=== PATIENT | male | born 1940 | race Caucasian/White ===

== ENCOUNTER 2017-01-23 11:06 | Emergency (ER) | payer MEDICARE ==
[~2017-01-23] VITALS: Ht 172.7 cm; Wt 68.0 kg
--- NOTE | 2017-01-23 11:15 | NUR ---
PT CAME HERE FOR WOUND/SKIN TEAR SUSTAINED LAST NIGHT DURING A FALL AT HIS PATIO. NOTED SKIN TEAR ON R FA. NAD NOTED. MD AT BS FOR EVAL. VSS. SAFETY AND COMFORT MEASURES PROVIDED. WILL MONITOR.
[2017-01-23] MEDS ORDERED: TDAP [DIPH/PERTUSSIS/TET] 0.5 ML VIAL IM ONE ×2 (11:19→11:30)
--- NOTE | 2017-01-23 11:20 | NUR ---
MAINTENANCE PLUMBER AT FOR BLOOD DRAW.
--- NOTE | 2017-01-23 11:32 | NUR ---
ROSALIA HANNA AT BS.
[2017-01-23 11:33] LABS: BASOPHILS # (AUTO) 0.1 /CMM (0.0-0.2); BASOPHILS % (AUTO) 0.7 % (0.0-2.0); EOSINOPHILS # (AUTO) 0.1 /CMM (0.0-0.7); EOSINOPHILS % (AUTO) 1.5 % (0.0-6.0); HEMATOCRIT 35 % (39-51); HEMOGLOBIN 11.9 g/dL (13.5-17.5); LYMPHOCYTES # (AUTO) 1.1 /CMM (0.8-4.8); LYMPHOCYTES % (AUTO) 14.1 % (20.0-44.0); MEAN CORPUSCULAR HEMOGLOBIN 33 PG (26.0-33.0); MEAN CORPUSCULAR HGB CONC 34 g/dl (31.0-36.0); MEAN CORPUSCULAR VOLUME 96 fL (80-96); MONOCYTES # (AUTO) 0.6 /CMM (0.1-1.30); MONOCYTES % (AUTO) 7.3 % (2.0-12.0); NEUTROPHILS # (AUTO) 5.9 /CMM (1.8-8.9); NEUTROPHILS % (AUTO) 76.4 % (43.0-81.0); PLATELET COUNT (AUTO) 227 /CMM (150-450); RDW COEFFICIENT OF VARIATION 12.8 (11.5-15.0); RED BLOOD CELL COUNT(AUTO) 3.59 MIL/uL (4.5-6.0); WHITE BLOOD COUNT (AUTO) 7.8 K/uL (4.3-11.0)
[2017-01-23 11:42] LABS: CALCIUM, SERUM 8.7 mg/dL (8.5-10.1); CARBON DIOXIDE 26 mmol/L (21-32); CHLORIDE 101 mmol/L (98-107); CREATININE 1.2 mg/dL (0.6-1.3); GLUCOSE 90 mg/dL (74-106); POTASSIUM 4.5 mmol/L (3.5-5.1); SODIUM SERUM 133 mmol/L (136-145); UREA NITROGEN, BLOOD 17 mg/dL (7-18)
[2017-01-23 11:50] LABS: TROPONIN I < 0.017 ng/mL (0.00-0.056)
--- NOTE | 2017-01-23 12:14 | NUR ---
DPatient discharged to home in stable condition. Written and verbal after care instructions given. Patient verbalizes understanding of instruction.
[2017-01-23 12:15] VITALS: BP 155/64
== END 2017-01-23 12:15 | disposition home or self-care (01) ==
LOC: ER 11:07
DX: S60.811A Abrasion of right wrist, initial encounter (principal); I10 Essential (primary) hypertension; F10.20 Alcohol dependence, uncomplicated; Z23 Encounter for immunization; W19.XXXA Unspecified fall, initial encounter; Y93.89 Activity, other specified; Y92.89 Other specified places as the place of occurrence of the external cause; Y99.8 Other external cause status
CPT/HCPCS: 36415; 71010; 80048; 84484; 85025; 90471; 90715; 93005; 99285; A4606; A6402; Z7610

== ENCOUNTER 2019-06-22 19:57 | Emergency (ER) | payer OTHER ==
[~2019-06-22] VITALS: Ht 172.7 cm; Wt 63.5 kg
--- NOTE | 2019-06-22 20:10 | NUR ---
BIB EMS C/O ALTERED, HEAVY ETOH SMELL. NOTED L NECK & L ELBOW SKIN TEAR. PATIENT ALTERED, ATTACHED TO THE IN HOME CAREGIVER. CHANGED INTO GOWN. NEEDS ATTENDED.
[2019-06-22 20:27] LABS: BASOPHILS # (AUTO) 0.1 /CMM (0.0-0.2); BASOPHILS % (AUTO) 1.4 % (0.0-2.0); EOSINOPHILS % (AUTO) 3.5 % (0.0-6.0); HEMATOCRIT 33 % (39-51); HEMOGLOBIN 11.1 g/dL (13.5-17.5); LYMPHOCYTES # (AUTO) 1.7 /CMM (0.8-4.8); LYMPHOCYTES % (AUTO) 28.6 % (20.0-44.0); MEAN CORPUSCULAR HGB CONC 34 g/dl (31.0-36.0); MEAN CORPUSCULAR VOLUME 100 fL (80-96); MONOCYTES # (AUTO) 0.5 /CMM (0.1-1.30); MONOCYTES % (AUTO) 8.9 % (2.0-12.0); NEUTROPHILS # (AUTO) 3.5 /CMM (1.8-8.9); NEUTROPHILS % (AUTO) 57.6 % (43.0-81.0); PLATELET COUNT (AUTO) 240 /CMM (150-450); RED BLOOD CELL COUNT(AUTO) 3.33 MIL/uL (4.5-6.0); WHITE BLOOD COUNT (AUTO) 6.1 K/uL (4.3-11.0)
[2019-06-22 20:30] LABS: APPEARANCE,URINE Clear (CLEAR); BILIRUBIN,URINE Negative (NEGATIVE); BLOOD, URINE Negative Ery/uL (NEGATIVE); COLOR,URINE Yellow (YELLOW); KETONES,URINE Negative (NEGATIVE); LEUKOCYTE ESTERASE ,URINE Negative (NEGATIVE); NITRITE, URINE Negative (NEGATIVE); PH,URINE 5.5 (5.0-8.0); PROTEIN,URINE Trace mg/dl (NEGATIVE); UGLUCOSE Negative (NEGATIVE); UROBILINOGEN,URINE 0.2 EU/dL (0.2)
[2019-06-22] MEDS ORDERED: BACI/NEOM/POLY B OINT PKT 1 UDPKT PACKET TP ONE ×2 (20:30→22:00)
[2019-06-22] MEDS ORDERED: TDAP [DIPH/PERTUSSIS/TET] 0.5 ML VIAL IM ONE ×2 (20:30→20:36)
[2019-06-22] MEDS ORDERED: BLOOD SUGAR DIAGNOSTIC 1 EACH STRIP IN ONE (20:30)
--- NOTE | 2019-06-22 20:38 | NUR ---
PATIENT TAKEN TO CT.
[2019-06-22 20:41] LABS: ALANINE AMINOTRANSFERASE 39 U/L (12-78); ALBUMIN 3.3 g/dL (3.4-5.0); ALCOHOL, BLOOD 356 mg/dL (0-0); ALKALINE PHOSPHATASE 70 U/L (46-116); ASPARTATE AMINOTRANSFERASE 114 U/L (15-37); BILIRUBIN,DIRECT 0.1 mg/dL (0.0-0.2); BILIRUBIN,TOTAL 0.2 mg/dL (0.2-1.0); CALCIUM, SERUM 8.5 mg/dL (8.5-10.1); CARBON DIOXIDE 22 mmol/L (21-32); CHLORIDE 103 mmol/L (98-107); CREATININE 1.3 mg/dL (0.6-1.3); GLUCOSE 104 mg/dL (74-106); POTASSIUM 3.3 mmol/L (3.5-5.1); SALICYLATE 3.4 mg/dL (2.8-20.0); SODIUM SERUM 136 mmol/L (136-145); UREA NITROGEN, BLOOD 21 mg/dL (7-18)
[2019-06-22 20:44] LABS: ACETAMINOPHEN < 2 ug/ml (10-30)
[2019-06-22 21:20] LABS: CREATINE KINASE, TOTAL 50 U/L (39-308)
[2019-06-22] MEDS ORDERED: POTASSIUM CHLORIDE 20 MEQ TAB.PRT.SR PO ONE ×3 (21:30→21:32)
--- NOTE | 2019-06-22 23:04 | NUR ---
ASSUMED CARE OF PT, PT WALKING TO NURSE'S STATION REQUESTING TO GO HOME. PT CONTINUES TO BE INTOXICATED, STUTTERING WORDS, BECOMING RESTLESS, AGITATED. PT REORIENTED ON STATUS, ADVISED PT TO RETURN TO BED, WILL BE DISCHARGED HOME PENDING SOBRIETY. PT UNABLE TO ACCOUNT FOR OWN SAFETY, CONTINUES TO DEMAND TO GO HOME, UNABLE TO VERIFY ADDRESS OR IDENTIFY HOW HE WILL GO HOME. SECURITY CALLED. PT ASSISTED BACK TO BED. PT ADVISED SEVERAL TIMES HE WILL BE ABLE TO GO HOME ONCE SOBER. BED LOW TO GROUND W/ SIDE RAILS UP FOR SAFETY. WILL CONTINUE TO MONITOR.
--- NOTE | 2019-06-23 00:25 | NUR ---
PT AMBULATORY W/ STEADY GAIT TO RESTROOM, NAD NOTED.
--- NOTE | 2019-06-23 01:25 | NUR ---
PT AWAKE, SITTING UP IN BED, REMOVING MONITORING EQUIPMENT, REQUESTING TO GO HOME. PT UPDATED ON STATUS, ADVISE PT ABLE TO GO HOME IN MORNING.
--- NOTE | 2019-06-23 02:59 | NUR ---
PT REPOSITIONING SELF IN BED, ASLEEP, ON RT SIDE POSITION, RESP EVEN & UNLABORED, ON CONTINUOUS MONITORING.
--- NOTE | 2019-06-23 05:01 | NUR ---
PT, AOX4, AMBULATORY W/ STEADY GAIT, RESP EVEN & UNLABORED, DENIES ANY PAIN, REPORT ABLE TO NAVIGATE COMMUNITY W/ NAD NOTED. Patient discharged to home in stable condition. Written and verbal after care instructions given. TAP card provided for pt transport home via bus. Patient verbalizes understanding of instruction.
[2019-06-23 05:04] VITALS: BP 156/72
== END 2019-06-23 05:06 | disposition home or self-care (01) ==
LOC: ER 19:57
DX: S11.81XA Laceration without foreign body of other specified part of neck, initial encounter (principal); S60.222A Contusion of left hand, initial encounter; S60.221A Contusion of right hand, initial encounter; S50.02XA Contusion of left elbow, initial encounter; S10.81XA Abrasion of other specified part of neck, initial encounter; F10.129 Alcohol abuse with intoxication, unspecified; D64.9 Anemia, unspecified; E87.6 Hypokalemia; I10 Essential (primary) hypertension; Z98.890 Other specified postprocedural states; Z60.2 Problems related to living alone; W18.39XA Other fall on same level, initial encounter; Y93.89 Activity, other specified; Y92.89 Other specified places as the place of occurrence of the external cause; Y99.8 Other external cause status
CPT/HCPCS: 36415; 70450; 71045; 72125; 73000; 73080; 80048; 80076; 80305; 80307; 80329; 81001; 82550; 82962; 83735; 85025; 85730; 90471; 90715; 99284; G0480; 81000-TC